=== PATIENT | female | born 1940 | race Caucasian/White ===

== ENCOUNTER 2016-09-26 12:30 | Emergency (ER) | payer MEDICARE ==
[2016-09-26] MEDS ORDERED: NORMAL SALINE 1000 ML 1,000 ML IV ONE (13:24)
[2016-09-26 13:56] LABS: ABSOLUTE LYMPHOCYTES (AUTO) 0.4 10^3/uL (0.5-4.7); ABSOLUTE MONOCYTES (AUTO) 0.5 10^3/uL (0.1-1.4); BASOPHILS % (AUTO) 0.5 % (0-2); EOSINOPHILS % (AUTO) 0.4 % (0-6); HEMOGLOBIN 13.4 g/dL (12.0-15.5); HGB HCT DIFFERENCE 0.2; LYMPHOCYTES % (AUTO) 7.2 % (13-45); MEAN CORPUSCULAR HEMOGLOBIN 29.7 pg (27.0-33.4); MEAN CORPUSCULAR HGB CONC 33.6 g/dL (32.0-36.0); MEAN CORPUSCULAR VOLUME 89 fl (80-97); MONOCYTES % (AUTO) 7.6 % (3-13); RED BLOOD COUNT 4.53 10^6/uL (3.72-5.28); RED CELL DISTRIBUTION WIDTH 13.6 % (11.5-14.0); SEGMENTED NEUTROPHILS % (AUTO) 84.3 % (42-78)
[2016-09-26 14:06] LABS: PROTHROMBIN TIME 13.2 SEC (11.4-15.4)
[2016-09-26 14:13] LABS: ALANINE AMINOTRANSFERASE 20 U/L (9-52); ALBUMIN 3.8 g/dL (3.5-5.0); ALKALINE PHOSPHATASE 89 U/L (38-126); ANION GAP 13 (5-19); ASPARTATE AMINO TRANSFERASE 18 U/L (14-36); BILIRUBIN,TOTAL 0.6 mg/dL (0.2-1.3); BLOOD UREA NITROGEN 18 mg/dL (7-20); CALCIUM 10.1 mg/dL (8.4-10.2); CARBON DIOXIDE 26 mmol/L (22-30); CHLORIDE 99 mmol/L (98-107); CREATINE KINASE 32 U/L (30-135); CREATININE RESULT 0.74 mg/dL (0.52-1.25); GLUCOSE 106 mg/dL (75-110); POTASSIUM 4.1 mmol/L (3.6-5.0); SODIUM 138.3 mmol/L (137-145); TOTAL PROTEIN 6.3 g/dL (6.3-8.2)
[2016-09-26 14:31] LABS: CREATINE KINASE MB 0.82 ng/mL (<4.55); TROPONIN I 0.024 ng/mL
[2016-09-26 15:39] LABS: APPEARANCE,URINE SLIGHTLY-CLOUDY; BILIRUBIN,URINE NEGATIVE (NEGATIVE); GLUCOSE, URINE NEGATIVE (NEGATIVE); KETONES,URINE 20 mg/dL (NEGATIVE); LEUKOCYTE ESTERASE,URINE TRACE (NEGATIVE); NITRITE,URINE NEGATIVE (NEGATIVE); PROTEIN,URINE NEGATIVE (NEGATIVE); URINE SPECIFIC GRAVITY 1.012; UROBILINOGEN,URINE NEGATIVE mg/dL (<2.0)
[2016-09-26 16:19] VITALS: BP 172/65
--- NOTE | 2016-09-26 16:25 | ER Document Report ---
ED General - General Chief Complaint: Syncope Stated Complaint: POSSIBLE SYNCOPE TRAVEL OUTSIDE OF THE [place] IN LAST 30 DAYS: No - HPI Patient complains to provider of: syncope Notes: Patient's coming in for evaluation after having a syncopal episode at [facility]. Patient states she has a history of a multiple syncopal episodes in the past. Patient states while [facility]. She fell low dizzy lightheaded with a sit down and then passed out denies any head trauma denies any hip pain this time. Patient does complain of left hand pain with obvious bruising and swelling noted to the ring and middle finger. Patient is unclear of the injury. Patient states prior to and after other than having hand pain denies head pain neck pain chest pain abdominal pain fevers chills nausea vomiting diarrhea. Patient states episode similar to episodes the past denies any palpitations. Patient states she's not followed up with her primary care any especially for further evaluation of her multiple syncopal episodes. - Related Data Allergies/Adverse Reactions: Sulfa (Sulfonamide Antibiotics) Allergy (Verified 07/22/16 18:03) Past Medical History - Social History Smoking Status: Unknown if Ever Smoked Family History: Reviewed & Not Pertinent - Past Medical History Cardiac Medical History: Reports: Hx Hypercholesterolemia, Hx Hypertension Denies: Hx Heart Attack Pulmonary Medical History: Denies: Hx Asthma Neurological Medical History: Reports: Hx Seizures - 30 YEARS AGO. Denies: Hx Cerebrovascular Accident Endocrine Medical History: Reports: Hx Diabetes Mellitus Type 2, Hx Hypothyroidism GI Medical History: Denies: Hx Hepatitis, Hx Hiatal Hernia, Hx Ulcer Psychiatric Medical History: Reports: Hx Depression Infectious Medical History: Denies: Hx Hepatitis Past Surgical History: Reports: Hx Cholecystectomy, Hx Orthopedic Surgery - ayesha knee/right rotator cuff, Hx Thyroid Surgery, Hx Tonsillectomy. Denies: Hx Mastectomy, Hx Open Heart Surgery, Hx Pacemaker - Immunizations Hx Diphtheria, Pertussis, Tetanus Vaccination: Yes Hx Pneumococcal Vaccination: 09/17/13 Review of Systems - Review of Systems Constitutional: No symptoms reported EENT: No symptoms reported Cardiovascular: Syncope Respiratory: No symptoms reported Gastrointestinal: No symptoms reported Genitourinary: No symptoms reported Female Genitourinary: No symptoms reported Musculoskeletal: No symptoms reported Skin: No symptoms reported Hematologic/Lymphatic: No symptoms reported Neurological/Psychological: No symptoms reported -: Yes All other systems reviewed and negative Physical Exam - Vital signs Vitals: Pulse Ox 97 09/26/16 12:46 Interpretation: Normal - General General appearance: Appears well, Alert - HEENT Head: Normocephalic, Atraumatic Eyes: Normal Pupils: PERRL - Respiratory Respiratory status: No respiratory distress Chest status: Nontender Breath sounds: Normal Chest palpation: Normal - Cardiovascular Rhythm: Regular Heart sounds: Normal auscultation Murmur: No - Abdominal Inspection: Normal Distension: No distension Bowel sounds: Normal Tenderness: Nontender Organomegaly: No organomegaly - Back Back: Normal, Nontender - Extremities General upper extremity: Nontender, Normal color, Normal ROM, Normal temperature. No: Normal inspection - Bruising to the left fourth and third digit range of motion normal Refill normal General lower extremity: Normal inspection, Nontender, Normal color, Normal ROM , Normal temperature, Normal weight bearing. No: Walt's sign - Neurological Neuro grossly intact: Yes Cognition: Normal Orientation: AAOx4 [place] Coma Scale Eye Opening: Spontaneous [place] Coma Scale Verbal: Oriented [place] Coma Scale Motor: Obeys Commands [place] Coma Scale Total: 15 Speech: Normal Motor strength normal: LUE, RUE, LLE, RLE Sensory: Normal - Psychological Associated symptoms: Normal affect, Normal mood - Skin Skin Temperature: Warm Skin Moisture: Dry Skin Color: Normal Course - Re-evaluation Re-evalutation: 09/26/16 19:28 Patient presents with syncopal episode. Lab work shows no critical etiology. Patient was orthostatic upon evaluation. After a liter fluid patient states she 's feeling better patient was able ambulate around the entire ER without difficulty. Patient requesting to be discharged home. Explained to the patient would recommend patient follow-up with primary care and cardiology if not be admitted to the hospital patient is requesting to be flat go. Did discuss with patient's daughter and also may these recommendations no states patient will not follow-up because she does not want to see any further doctors. Otherwise patient has a critical etiology filled patient safe to be discharged home she was cursing plenty fluids. - Vital Signs Vital signs: Temp Pulse Resp BP Pulse Ox 82 14 172/65 H 100 09/26/16 13:52 09/26/16 16:01 09/26/16 16:01 09/26/16 16:01 - Laboratory Result Diagrams: 09/26/16 13:30 09/26/16 13:30 Laboratory results interpreted by me: 09/26/16 09/26/16 13:30 15:24 Seg Neutrophils % 84.3 H Lymphocytes % 7.2 L Absolute Lymphocytes 0.4 L Urine Ketones 20 H Ur Leukocyte Esterase TRACE H Discharge - Discharge Clinical Impression: Syncope Qualifiers: Syncope type: unspecified Qualified Code(s): R55 - Syncope and collapse Condition: Good Disposition: HOME, SELF-CARE Instructions: Syncopal Episode ([facility]) Additional Instructions: Follow-up with your primary care physician. Take medication as prescribed. Referrals: DEEPA JUDGE MD [ACTIVE STAFF] - Follow up as needed
--- NOTE | 2016-09-26 20:38 | EKG REPORT ---
SEVERITY:- ABNORMAL ECG - SINUS RHYTHM FIRST DEGREE AV BLOCK RBBB AND LAFB LEFT VENTRICULAR HYPERTROPHY : Confirmed by: Gurwinder Lundberg MD 26-Sep-2016 20:37:11
== END 2016-09-26 16:25 | disposition home or self-care (01) ==
LOC: ER 12:30
DX: R55 Syncope and collapse (principal); R42 Dizziness and giddiness; M79.642 Pain in left hand; M79.89 Other specified soft tissue disorders
CPT/HCPCS: 36415; 71010; 80053; 81001; 82550; 82553; 84484; 85025; 85610; 93005; 93010; 99285

== ENCOUNTER 2016-10-11 10:32 | Inpatient (IN) | payer MEDICARE, BC ==
--- NOTE | 2016-10-11 11:06 | ER Document Report ---
ED Neuro Symptoms/Deficit - General Mode of Arrival: Medic Information source: Patient Notes: 75 year old female with history of syncopal episodes (last one 2 weeks ago), hypertension, and hyperlipidemia presents to the ED via EMS complaining of slurred speech, right facial weakness, and right lower extremity weakness what was present when the patient woke up. Patient called her primary care physician , Dr. Gordon, in order to cancel an appointment that she had today and was told to hang up the phone and dial 911 because she had slurred speech. Patient reports that she proceeded to fall after hanging the phone up. Patient claims that she feels better and that her speech is almost back to normal. She explains that she "can't make my words exactly." Patient additionally reports that she had "trouble" with her vision last night before bed. Patient does not remember if she had any weakness last night. Patient was seen in the ED 2 years ago secondary to altered mental status and was transferred to [place] for bilateral carotid stenosis. TRAVEL OUTSIDE OF THE [place] IN LAST 30 DAYS: No - HPI Patient complains to provider of: Falling, Speech Impairment, Vision Changes, Weakness - right leg and face Onset: Other - see above Altered sensation: RLE, R facial Associated symptoms: Other - see above <MAZIN SO - Last Filed: 10/11/16 11:06> - General Notes: This 75-year-old female patient comes emergency room for slurred speech and right sided weakness. She reports prior to going to bed last night she was seeing double. When she woke up this morning the vision was back to normal other than being a little blurred. She noticed when she woke up this morning the right lower extremity seemed to be a little weak and dragged the leg. She called her primary care provider to cancel a scheduled appointment for today, and the switchboard wirer noticed that her speech was slurred and recommended that she hang up and down 911. Past history significant for type II diabetes, GERD, hypertension, hyperlipidemia, seizure disorder, depression and bipolar illness, hypothyroid. She does have bilateral carotid stenosis, has had a thyroidectomy. She spent 12 days in the hospital in September 2014 for mental status changes, was found to have bilateral carotid artery stenosis, was transferred to [facility]. She does not think there were any interventions done when she went there. She has been here for psychiatric problems related to depression and suicidal ideation at least twice since then. When she is worsening, there is some right facial weakness, right content publisher strength is normal, right leg lift is almost absent. About 2 hours later, she is able to lift the right leg up as similar to the left leg. Her right facial weakness seemed to have improved also. <HENRIKYVETTE - Last Filed: 10/11/16 12:48> - General Chief Complaint: Slurred Speech Stated Complaint: SLURRED SPEECH - Related Data Allergies/Adverse Reactions: Sulfa (Sulfonamide Antibiotics) Allergy (Verified 10/11/16 11:14) Past Medical History - General Information source: Patient - Social History Smoking Status: Unknown if Ever Smoked Family History: Reviewed & Not Pertinent - Past Medical History Cardiac Medical History: Reports: Hx Hypercholesterolemia, Hx Hypertension Neurological Medical History: Reports: Hx Seizures - 30 YEARS AGO, Other - syncopal episodes Endocrine Medical History: Reports: Hx Diabetes Mellitus Type 2, Hx Hypothyroidism Psychiatric Medical History: Reports: Hx Depression Past Surgical History: Reports: Hx Cholecystectomy, Hx Orthopedic Surgery - ayesha knee/right rotator cuff, Hx Thyroid Surgery, Hx Tonsillectomy - Immunizations Hx Diphtheria, Pertussis, Tetanus Vaccination: Yes Hx Pneumococcal Vaccination: 09/17/13 <MAZIN SO - Last Filed: 10/11/16 11:06> Review of Systems - Review of Systems Constitutional: No symptoms reported EENT: See HPI, Other - vision "troubles" Cardiovascular: No symptoms reported Respiratory: No symptoms reported Gastrointestinal: No symptoms reported Genitourinary: No symptoms reported Female Genitourinary: No symptoms reported Musculoskeletal: No symptoms reported Skin: No symptoms reported Hematologic/Lymphatic: No symptoms reported Neurological/Psychological: See HPI, Weakness - right face and right lower extremity, Speech impairment - slurred speech -: Yes All other systems reviewed and negative <MAZIN SO - Last Filed: 10/11/16 11:06> Physical Exam - General General appearance: Alert In distress: None - HEENT Head: Normocephalic, Atraumatic Eyes: Normal Extraocular movements intact: Yes Pupils: PERRL - Respiratory Respiratory status: No respiratory distress Breath sounds: Normal - Cardiovascular Rhythm: Irregularly irregular - with occassional dropped beats Murmur: Yes - systolic murmur - Abdominal Inspection: Normal - Back Back: Normal - Extremities General upper extremity: Normal inspection, Normal ROM General lower extremity: No: Normal inspection - see neuro exam below - Neurological Neuro grossly intact: Yes Cognition: Normal Orientation: AAOx4 [place] Coma Scale Eye Opening: Spontaneous [place] Coma Scale Verbal: Oriented [place] Coma Scale Motor: Obeys Commands [place] Coma Scale Total: 15 Speech: Normal - but slow Additional motor exam normals: Equal content publisher, Other - Right facial weakness. Right lower extremity weakness. Unable to lift RLE off bed. - Psychological Associated symptoms: Normal affect, Normal mood - Skin Skin Temperature: Warm Skin Moisture: Dry Skin Color: Normal <MAZIN SO - Last Filed: 10/11/16 11:06> - Vital signs Vitals: Temp Pulse Resp BP Pulse Ox 98.3 F 77 16 181/86 H 97 10/11/16 10:33 10/11/16 10:33 10/11/16 10:33 10/11/16 10:33 10/11/16 10:33 <YVETTE CHESTER - Last Filed: 10/11/16 12:48> Course - Re-evaluation Re-evalutation: 10/11/16 12:47 The patient's deficit seem to have cleared in less than 2 hours from arrival time. The patient did wake up with her symptoms. For these reasons the patient is not a TPA candidate. - Vital Signs Vital signs: Temp Pulse Resp BP Pulse Ox 98.3 F 77 17 181/86 H 98 10/11/16 10:33 10/11/16 10:33 10/11/16 10:33 10/11/16 10:33 10/11/16 10:40 - Laboratory Result Diagrams: 10/11/16 11:00 10/11/16 11:00 Laboratory results interpreted by me: 10/11/16 11:00 Lymphocytes % 12.7 L - Diagnostic Test Radiology reviewed: Reports reviewed - CT does show some chronic changes with nothing acute. Chest x-ray does not show any acute process. - EKG Interpretation by Me EKG shows normal: Sinus rhythm, Kinsman, ST-T Waves. abnormal: Intervals - Borderline prolonged QT interval, QRS Complexes - Old inferior TX, old anterior TX Rate: Normal - 70 Rhythm: NSR When compared to previous EKG there are: No significant change - Consults Dr. Calabrese Time consulted: 12:40 Consulted provider: will come to ER <YVETTE CHESTER - Last Filed: 10/11/16 12:48> ED [employer]/Exc Criteria - Inclusion Criteria: 1: Patient presented to ED within 3 hours of acute ischemic stroke symptom onset ? -: No - patient woke up with symptoms this morning. 2: Did baseline CT exclude intracranial hemorrhage and/or other risk factors? -: Yes 3: Is the age of the patient 18 years of age or greater? -: Yes : If any of the above questions are answered "NO" then stop, patient is not a candidate for Alteplase, : If all of the above questions are answered "YES" then continue with Exclusion Criteria. <HENRIKYVETTE - Last Filed: 10/11/16 12:48> ED NIH Stroke Scale Discharge <MAZIN SO - Last Filed: 10/11/16 11:06> - Discharge Admitting Provider: Hospitalist Unit Admitted: IMCU <HENRIKYVETTE - Last Filed: 10/11/16 12:48> - Discharge Clinical Impression: TIA (transient ischemic attack) Qualifiers: Transient cerebral ischemia type: unspecified Qualified Code(s): G45.9 - Transient cerebral ischemic attack, unspecified Hypertension Qualifiers: Hypertension type: essential hypertension Qualified Code(s): I10 - Essential ( primary) hypertension Condition: Stable Disposition: ADMITTED OBSERVATION Referrals: JAMES GORDON MD [Primary Care Provider] - Follow up as needed Scribe Documentation - Scribe Written by Scribe:: Luba Mcnamara, 10/11/2016 1119 acting as scribe for :: Henrik <MAZIN SO - Last Filed: 10/11/16 11:06>
[2016-10-11 11:19] LABS: ABSOLUTE EOSINOPHILS # (AUTO) 0.1 10^3/uL (0.0-0.6); ABSOLUTE LYMPHOCYTES (AUTO) 0.6 10^3/uL (0.5-4.7); ABSOLUTE MONOCYTES (AUTO) 0.4 10^3/uL (0.1-1.4); ABSOLUTE NEUT (AUTO) 3.5 10^3/uL (1.7-8.2); BASOPHILS % (AUTO) 0.6 % (0-2); EOSINOPHILS % (AUTO) 1.3 % (0-6); HEMATOCRIT 39.1 % (36.0-47.0); HEMOGLOBIN 13.3 g/dL (12.0-15.5); HGB HCT DIFFERENCE 0.8; LYMPHOCYTES % (AUTO) 12.7 % (13-45); MEAN CORPUSCULAR HEMOGLOBIN 30.2 pg (27.0-33.4); MEAN CORPUSCULAR HGB CONC 34.1 g/dL (32.0-36.0); MEAN CORPUSCULAR VOLUME 88 fl (80-97); MONOCYTES % (AUTO) 8.3 % (3-13); PARTIAL THROMBOPLASTIN TIME 29.4 SEC (23.5-35.8); RED BLOOD COUNT 4.42 10^6/uL (3.72-5.28); RED CELL DISTRIBUTION WIDTH 13.9 % (11.5-14.0); SEGMENTED NEUTROPHILS % (AUTO) 77.1 % (42-78); WHITE BLOOD COUNT 4.5 10^3/uL (4.0-10.5)
[2016-10-11 11:21] LABS: PROTHROMBIN TIME 13.3 SEC (11.4-15.4)
--- NOTE | 2016-10-11 11:25 | EKG REPORT ---
SEVERITY:- ABNORMAL ECG - SINUS RHYTHM RBBB AND LAFB LEFT VENTRICULAR HYPERTROPHY : Confirmed by: Jeremy Maynard 11-Oct-2016 11:24:37
[2016-10-11 11:37] LABS: ALANINE AMINOTRANSFERASE 28 U/L (9-52); ALBUMIN 3.9 g/dL (3.5-5.0); ALKALINE PHOSPHATASE 88 U/L (38-126); ANION GAP 7 (5-19); ASPARTATE AMINO TRANSFERASE 18 U/L (14-36); BILIRUBIN,TOTAL 0.5 mg/dL (0.2-1.3); BLOOD UREA NITROGEN 14 mg/dL (7-20); CALCIUM 10.1 mg/dL (8.4-10.2); CARBON DIOXIDE 30 mmol/L (22-30); CHLORIDE 102 mmol/L (98-107); CREATINE KINASE 30 U/L (30-135); CREATININE RESULT 0.59 mg/dL (0.52-1.25); GLUCOSE 106 mg/dL (75-110); SODIUM 139.4 mmol/L (137-145); TOTAL PROTEIN 6.4 g/dL (6.3-8.2)
[2016-10-11 11:48] LABS: CREATINE KINASE MB 0.56 ng/mL (<4.55); TROPONIN I 0.012 ng/mL
[2016-10-11 13:20] LABS: APPEARANCE,URINE SLIGHTLY-CLOUDY; BILIRUBIN,URINE NEGATIVE (NEGATIVE); GLUCOSE, URINE NEGATIVE (NEGATIVE); KETONES,URINE NEGATIVE (NEGATIVE); LEUKOCYTE ESTERASE,URINE NEGATIVE (NEGATIVE); NITRITE,URINE NEGATIVE (NEGATIVE); PROTEIN,URINE NEGATIVE (NEGATIVE); URINE SPECIFIC GRAVITY 1.009; UROBILINOGEN,URINE NEGATIVE mg/dL (<2.0)
[2016-10-11] MEDS ORDERED: ACETAMINOPHEN 325 MG TABLET PO PRN (13:36)
[2016-10-11] MEDS ORDERED: ONDANSETRON 4 MG TAB.RAPDIS PO PRN (13:36)
[2016-10-11] MEDS ORDERED: ONDANSETRON HCL INJ/PF 4 MG/2 ML SDV IV PRN (13:36)
[2016-10-11] MEDS ORDERED: GLUCAGON,HUMAN RECOMB 1 MG INJ IM PRN (13:50)
[2016-10-11] MEDS ORDERED: INSULIN LISPRO 100 UNIT/ML 3 ML VIAL SUBCUT PRN (13:50)
[2016-10-11] MEDS ORDERED: DEXTROSE 40% GEL 15 GM TUBE PO PRN ×2 (13:50)
[2016-10-11] MEDS ORDERED: DEXTROSE 50%-WATER 25 GM/50 ML DISP.SYRIN IV PRN ×2 (13:50)
--- NOTE | 2016-10-11 14:04 | PDOC H&P ---
History of Present Illness Admission Date/PCP: 10/11/16 13:27 JAMES GORDON MD Patient complains of: Right weakness along with dysarthria History of Present Illness: MARCELO NIXON is a 75 year old female who went to bed last night in her usual state of health but woke up this morning with right arm and leg weakness. She wouldn't call her doctor to schedule appointment for evaluation of her right arm and leg weakness and they noted that she was having difficulty speaking told her to call 911. Patient was emergency room and continues to have some mild dysarthria and has right arm and leg weakness but reports it is improved from when she woke up. The patient is out of the window for thrombolytics. She had a head CT which shows no acute event. Patient has been taking aspirin 81 mg daily because of her history and has been compliant with this. She denies any visual loss. She denies odynophagia or dysphagia. She denies any sensory changes. Past Medical History Cardiac Medical History: Reports: Hyperlipidema, Hypertension Denies: Myocardial Infarction Pulmonary Medical History: Denies: Asthma EENT Medical History: Reports: None Neurological Medical History: Reports: Seizures - 30 YEARS AGO, Other - syncopal episodes Endocrine Medical History: Reports: Diabetes Mellitus Type 2, Hypothyroidism Renal/ Medical History: Reports: None Malignancy Medical History: Reports: None GI Medical History: Reports: Gastroesophageal Reflux Disease Denies: Hepatitis, Hiatal Hernia Skin Medical History: Reports: None Psychiatric Medical History: Reports: Depression Traumatic Medical History: Reports: None Hematology: Denies: Anemia, Sickle Cell Disease Infectious Medical History: Reports: None Past Surgical History Past Surgical History: Reports: Cholecystectomy, Hysterectomy, Orthopedic Surgery - ayesha knee/right rotator cuff, Tonsillectomy Denies: Amputation, Mastectomy, Pacemaker Social History Information Source: Patient Lives with: Alone Smoking Status: Never Smoker Frequency of Alcohol Use: None Hx Recreational Drug Use: No Drugs: None Hx Prescription Drug Abuse: No - Advance Directive Resuscitation Status: Do Not Resuscitate Surrogate healthcare decision maker:: Daughter Family History Family History: Mother at age 84 from complications of anemia. Father at age 67 from coronary artery disease. Parental Family History Reviewed: Yes Children Family History Reviewed: No Sibling(s) Family History Reviewed.: No Medication/Allergy Allergies/Adverse Reactions: Sulfa (Sulfonamide Antibiotics) Allergy (Verified 10/11/16 11:14) Review of Systems Constitutional: ABSENT: chills, fever(s), headache(s), weight gain, weight loss Ears: ABSENT: hearing changes Cardiovascular: ABSENT: chest pain, dyspnea on exertion, edema, orthropnea, palpitations Respiratory: ABSENT: cough, hemoptysis Gastrointestinal: ABSENT: abdominal pain, constipation, diarrhea, hematemesis, hematochezia, nausea, vomiting Genitourinary: ABSENT: dysuria, hematuria Musculoskeletal: ABSENT: joint swelling Integumentary: ABSENT: rash, wounds Neurological: PRESENT: as per HPI Psychiatric: ABSENT: anxiety, depression Hematologic/Lymphatic: ABSENT: easy bleeding, easy bruising Physical Exam Vital Signs: Temp Pulse Resp BP Pulse Ox 98.3 F 100 15 168/74 H 98 10/11/16 10:33 10/11/16 11:57 10/11/16 13:01 10/11/16 13:01 10/11/16 13:01 General appearance: PRESENT: no acute distress, well-developed, well-nourished Head exam: PRESENT: atraumatic, normocephalic Eye exam: PRESENT: conjunctiva pink, EOMI, PERRLA. ABSENT: scleral icterus Ear exam: PRESENT: normal external ear exam Mouth exam: PRESENT: moist, tongue midline Neck exam: ABSENT: carotid bruit, JVD, lymphadenopathy, thyromegaly Respiratory exam: PRESENT: clear to auscultation ayesha. ABSENT: rales, rhonchi, wheezes Cardiovascular exam: PRESENT: RRR, systolic murmur - 3/6 systolic murmur. ABSENT: diastolic murmur, rubs Pulses: PRESENT: normal dorsalis pedis pul GI/Abdominal exam: PRESENT: normal bowel sounds, soft. ABSENT: distended, guarding, mass, organolmegaly, rebound, tenderness Rectal exam: PRESENT: deferred Extremities exam: ABSENT: calf tenderness, clubbing, pedal edema Neurological exam: PRESENT: alert, awake, oriented to person, oriented to place , oriented to time, oriented to situation, CN II-XII grossly intact, motor sensory deficit - Strength is 4 out of 5 on the right upper and lower extremity. She does have some right-sided facial droop also. Psychiatric exam: PRESENT: appropriate affect Skin exam: PRESENT: dry, intact, warm. ABSENT: cyanosis, rash Results Impressions: Chest X-Ray 10/11/16 10:33 IMPRESSION: NO ACUTE RADIOGRAPHIC FINDING IN THE CHEST. Head CT 10/11/16 10:33 IMPRESSION: MILD CHRONIC CHANGES OF ATROPHY AND MICROVASCULAR ISCHEMIA. NO ACUTE PROCESS. Assessment & Plan - Diagnosis (1) CVA (cerebral vascular accident) Is this a current diagnosis for this admission?: YesPlan: The patient awoke with symptoms of right-sided weakness consistent with an acute CVA. She has improved and received TPA she was outside of the window. Will increase her aspirin dose to 325 mg a day. We'll check carotid Dopplers, MRI, echocardiogram. We'll also consult PT OT and speech therapy. (2) High blood pressure Qualifiers: Hypertension type: essential hypertension Qualified Code(s): I10 - Essential (primary) hypertension Is this a current diagnosis for this admission?: YesPlan: Patient has not currently been on medications and we will watch closely. (3) Hypercholesterolemia Is this a current diagnosis for this admission?: YesPlan: Patient has been on Lipitor. Will check a lipid panel. (4) Hypothyroidism Is this a current diagnosis for this admission?: YesPlan: Continue Synthroid. (5) Seizure disorder Is this a current diagnosis for this admission?: YesPlan: Continue with Tegretol. (6) DVT prophylaxis Is this a current diagnosis for this admission?: YesPlan: We'll give Lovenox. - Time Time Spent: 50 to 70 Minutes - Plan Summary Plan Summary: We'll make an observation admission.
[2016-10-11] MEDS ORDERED: ASPIRIN 325 MG TABLET PO ONE (15:45)
[2016-10-11] MEDS ORDERED: ENOXAPARIN SODIUM INJ 40 MG/0.4 ML DISP.SYRIN SUBCUT ONE (15:45)
[2016-10-11 15:56] LABS: CHOLESTEROL 206.23 mg/dL (0-200); Direct HDL 55 mg/dL (>40); TRIGLYCERIDES 175 mg/dL (<150)
[2016-10-11 16:07] LABS: DIRECT LDL 96 mg/dL (<100)
--- NOTE | 2016-10-11 18:12 | XCELERA REPORT ---
[address] [address] Transthoracic Echocardiogram Report Name: MARCELO NIXON Age: 75 yrs Gender: Female : 1940 Patient Status: Inpatient Patient Location: \S\[facility]\S\A Study Date: 10/11/2016 02:57 PM Height: 66 in Weight: 145 lb BSA: 1.7 m2 Procedure: A complete two-dimensional transthoracic echocardiogram was performed (2D, M-mode, spectral and color flow Doppler). The study was technically difficult with many images being suboptimal in quality. Reason For Study: cva Ordering Physician: ADAM MEJIA Performed By: Paula Prescott Interpretation Summary The left ventricular ejection fraction is normal. Doppler measurements suggest impaired left ventricular relaxation, which is associated with grade I/IV or mild diastolic dysfunction There is mild concentric left ventricular hypertrophy. The left ventricle is grossly normal size. Wall motion cannot be accurately commented on, but no definite regional wall motion abnormalities noted. The right ventricular systolic function is normal. The left atrial size is normal. The right atrium is normal. There is no mitral valve stenosis. There is a trace to mild amount of mitral regurgitation There is mild aortic stenosis There is a peak gradient of 25 mm of Hg. No aortic regurgitation is present. There is a trace or physiologic amount of tricuspid regurgitation Right ventricular systolic pressure is at the upper limits of normal Minimal pericardial effusion. No definite cardiac source of CVA/TIA noted on this particular trans- thoracic study. Consider WILLIAM if clinically indicated. May consider mobile cardiac telemetry monitoring (MCT) for ruling out transient AFIB. MMode/2D Measurements \T\ Calculations RVDd: 2.1 cm LVIDd: 4.3 cm FS: 42.9 % Ao root diam: 3.4 cm IVSd: 1.3 cm LVIDs: 2.4 cm EDV(Teich): 81.5 ml LVPWd: 1.3 cm ESV(Teich): 21.0 ml Ao root area: 9.2 cm2 EF(Teich): 74.3 % LA dimension: 3.5 cm LVOT diam: 1.8 cm LVOT area: 2.4 cm2 Doppler Measurements \T\ Calculations MV E max fish: MV P1/2t max fish: Ao V2 max: LV V1 max P.6 cm/sec 67.6 cm/sec 260.9 cm/sec 4.8 mmHg MV A max fish: MV P1/2t: 50.7 msec Ao max PG: LV V1 mean P.8 cm/sec MVA(P1/2t): 4.3 cm2 27.7 mmHg 2.8 mmHg MV E/A: 0.69 MV dec slope: Ao V2 mean: LV V1 max: 390.8 cm/sec2 196.3 cm/sec 110.0 cm/sec Ao mean PG: LV V1 mean: 18.0 mmHg 77.2 cm/sec Ao V2 VTI: 46.3 cmLV V1 VTI: MILIND(I,D): 1.2 cm2 22.3 cm MILIND(V,D): 1.0 cm2 SV(LVOT): 54.6 ml PA V2 max: TR max fish: 134.3 cm/sec 250.8 cm/sec PA max P.2 mmHg TR max P.2 mmHg Left Ventricle The left ventricle is grossly normal size. There is mild concentric left ventricular hypertrophy. The left ventricular ejection fraction is normal. Doppler measurements suggest impaired left ventricular relaxation, which is associated with grade I/IV or mild diastolic dysfunction. Wall motion cannot be accurately commented on, but no definite regional wall motion abnormalities noted. Right Ventricle The right ventricle is grossly normal size. There is normal right ventricular wall thickness. The right ventricular systolic function is normal. Atria The right atrium is normal. The left atrial size is normal. Interarterial septum not well visualized and not well dopplered. Cannot comment on ASD/PFO presence. Mitral Valve There is mild mitral annular calcification. There is no mitral valve stenosis. There is a trace to mild amount of mitral regurgitation. Aortic Valve The aortic valve is not well visualized secondary to technical limitations. There is mild aortic stenosis. There is a peak gradient of 25 mm of Hg. No aortic regurgitation is present. Tricuspid Valve The tricuspid valve is not well visualized secondary to technical limitations. There is no tricuspid stenosis. There is a trace or physiologic amount of tricuspid regurgitation. Right ventricular systolic pressure is at the upper limits of normal. Pulmonic Valve The pulmonic valve is not well visualized. Great Vessels The aortic root is not well visualized. The inferior vena cava appeared normal and decreased > 50% with respiration (RAP 5-10 mmHg). Effusions Minimal pericardial effusion. Incidental Findings No definite cardiac source of CVA/TIA noted on this particular trans- thoracic study. Consider WILLIAM if clinically indicated. May consider mobile cardiac telemetry monitoring (MCT) for ruling out transient AFIB. : ADAM MEJIA > Jeremy Maynard
[2016-10-11] MEDS: BUSPIRONE HCL 10 MG TABLET PO SCH (21:30)
[2016-10-11] MEDS: CARBAMAZEPINE 200 MG TAB.SR.12H PO SCH (21:30)
[2016-10-11] MEDS: RISPERIDONE 1 MG TABLET PO SCH (21:31)
[2016-10-11] MEDS: ATORVASTATIN CALCIUM 10 MG TABLET PO SCH (21:32)
[2016-10-12 04:46] LABS: HEMATOCRIT 37.1 % (36.0-47.0); HEMOGLOBIN 12.8 g/dL (12.0-15.5); HGB HCT DIFFERENCE 1.3; MEAN CORPUSCULAR HEMOGLOBIN 30.4 pg (27.0-33.4); MEAN CORPUSCULAR HGB CONC 34.5 g/dL (32.0-36.0); MEAN CORPUSCULAR VOLUME 88 fl (80-97); RED BLOOD COUNT 4.22 10^6/uL (3.72-5.28); RED CELL DISTRIBUTION WIDTH 14.1 % (11.5-14.0); WHITE BLOOD COUNT 5.1 10^3/uL (4.0-10.5)
[2016-10-12 05:24] LABS: ANION GAP 7 (5-19); BLOOD UREA NITROGEN 16 mg/dL (7-20); CALCIUM 9.7 mg/dL (8.4-10.2); CARBON DIOXIDE 26 mmol/L (22-30); CHLORIDE 105 mmol/L (98-107); CREATININE RESULT 0.62 mg/dL (0.52-1.25); GLUCOSE 99 mg/dL (75-110); MAGNESIUM 1.9 mg/dL (1.6-2.3); POTASSIUM 3.9 mmol/L (3.6-5.0); SODIUM 138.4 mmol/L (137-145)
[2016-10-12] MEDS: ENOXAPARIN SODIUM INJ 40 MG/0.4 ML DISP.SYRIN SUBCUT SCH (07:51)
[2016-10-12] MEDS: FLUOXETINE HCL 20 MG CAPSULE PO SCH (09:33)
[2016-10-12] MEDS: BUSPIRONE HCL 10 MG TABLET PO SCH ×2 (09:33→22:11)
[2016-10-12] MEDS: LEVOTHYROXINE SODIUM 0.075 MG TABLET PO SCH (09:34)
[2016-10-12] MEDS: CARBAMAZEPINE 200 MG TAB.SR.12H PO SCH ×2 (09:34→22:10)
[2016-10-12] MEDS: ASPIRIN 325 MG TABLET, ENT COATED PO SCH (09:34)
--- NOTE | 2016-10-12 11:55 | PDOC PROGRESS REPORT ---
Subjective Progress Note for:: 10/12/16 Subjective:: Patient continues to right-sided weakness. She did have an episode this morning when she got up with physical therapy that she became unresponsive for about 1 minute. She had no seizure activity and had return back to her baseline. Physical Exam Vital Signs: Temp Pulse Resp BP Pulse Ox 97.9 F 77 17 188/71 H 98 10/12/16 07:34 10/12/16 08:00 10/12/16 08:00 10/12/16 08:00 10/12/16 08:00 Intake & Output 10/11/16 10/12/16 10/13/16 06:59 06:59 06:59 Intake Total 225 Balance 225 Weight 63.2 kg General appearance: PRESENT: no acute distress Eye exam: PRESENT: conjunctiva pink, scleral icterus Mouth exam: PRESENT: moist, tongue midline Respiratory exam: PRESENT: clear to auscultation ayesha. ABSENT: rales, rhonchi, wheezes Cardiovascular exam: PRESENT: RRR. ABSENT: diastolic murmur, rubs, systolic murmur GI/Abdominal exam: PRESENT: normal bowel sounds, soft. ABSENT: distended, guarding, mass, organolmegaly, rebound, tenderness Neurological exam: PRESENT: alert, awake, oriented to person, oriented to place , oriented to time, oriented to situation, CN II-XII grossly intact, motor sensory deficit Psychiatric exam: PRESENT: appropriate affect Skin exam: PRESENT: dry, intact, warm. ABSENT: cyanosis, rash Results Laboratory Results: 10/12/16 04:17 10/12/16 04:17 10/12/16 10/12/16 04:17 04:17 WBC 5.1 RBC 4.22 Hgb 12.8 Hct 37.1 MCV 88 MCH 30.4 MCHC 34.5 RDW 14.1 H Plt Count 199 Sodium 138.4 Potassium 3.9 Chloride 105 Carbon Dioxide 26 Anion Gap 7 BUN 16 Creatinine 0.62 Est GFR ( Amer) > 60 Est GFR (Non-Af Amer) > 60 Glucose 99 Calcium 9.7 Magnesium 1.9 Impressions: Chest X-Ray 10/11/16 10:33 IMPRESSION: NO ACUTE RADIOGRAPHIC FINDING IN THE CHEST. Head CT 10/11/16 10:33 IMPRESSION: MILD CHRONIC CHANGES OF ATROPHY AND MICROVASCULAR ISCHEMIA. NO ACUTE PROCESS. Carotid Doppler Study 10/11/16 13:49 IMPRESSION: Findings consistent with a greater than 70% stenosis in the left internal carotid artery. No hemodynamically significant stenoses are identified on the right. There has been interval progression in the degree of stenosis on the left as compared to the previous study. Head MRI 10/11/16 13:49 IMPRESSION: Diffusion-weighted images are positive for tiny cortical infarcts in the left frontal convexity and a small left deep periventricular white matter acute infarct. Assessment & Plan - Diagnosis (1) CVA (cerebral vascular accident) Is this a current diagnosis for this admission?: YesPlan: The patient awoke with symptoms of right-sided weakness consistent with an acute CVA. The admission history and physical stated that she received TPA which was an error. She was outside the window for receiving TPA. MRI does show an acute CVA. Carotid Dopplers show left-sided stenosis. We'll continue with full strength aspirin. (2) High blood pressure Qualifiers: Hypertension type: essential hypertension Qualified Code(s): I10 - Essential (primary) hypertension Is this a current diagnosis for this admission?: YesPlan: Her blood pressures have been elevated and we will start on Toprol. (3) Hypercholesterolemia Is this a current diagnosis for this admission?: YesPlan: Patient has been on Lipitor. Will check a lipid panel. (4) Hypothyroidism Is this a current diagnosis for this admission?: YesPlan: Continue Synthroid. (5) Seizure disorder Is this a current diagnosis for this admission?: YesPlan: Continue with Tegretol. (6) DVT prophylaxis Is this a current diagnosis for this admission?: YesPlan: We'll give Lovenox. - Time Time Spent with patient: 25-34 minutes - Inpatient Certification Medical Necessity: Need Close Monitoring Due to Risk of Patient Decompensation
[2016-10-12] MEDS ORDERED: METOPROLOL SUCCINATE 25 MG TAB.SR.24H PO ONE (13:00)
[2016-10-12] MEDS: ATORVASTATIN CALCIUM 10 MG TABLET PO SCH (22:10)
[2016-10-12] MEDS: RISPERIDONE 1 MG TABLET PO SCH (22:10)
[2016-10-13 05:11] LABS: ABSOLUTE EOSINOPHILS # (AUTO) 0.1 10^3/uL (0.0-0.6); ABSOLUTE LYMPHOCYTES (AUTO) 0.8 10^3/uL (0.5-4.7); ABSOLUTE MONOCYTES (AUTO) 0.7 10^3/uL (0.1-1.4); ABSOLUTE NEUT (AUTO) 4.7 10^3/uL (1.7-8.2); BASOPHILS % (AUTO) 0.7 % (0-2); EOSINOPHILS % (AUTO) 2.1 % (0-6); HEMATOCRIT 39.4 % (36.0-47.0); HEMOGLOBIN 13.6 g/dL (12.0-15.5); HGB HCT DIFFERENCE 1.4; LYMPHOCYTES % (AUTO) 12.7 % (13-45); MEAN CORPUSCULAR HEMOGLOBIN 30.4 pg (27.0-33.4); MEAN CORPUSCULAR HGB CONC 34.4 g/dL (32.0-36.0); MEAN CORPUSCULAR VOLUME 88 fl (80-97); MONOCYTES % (AUTO) 11.2 % (3-13); RED BLOOD COUNT 4.46 10^6/uL (3.72-5.28); RED CELL DISTRIBUTION WIDTH 13.8 % (11.5-14.0); SEGMENTED NEUTROPHILS % (AUTO) 73.3 % (42-78); WHITE BLOOD COUNT 6.4 10^3/uL (4.0-10.5)
[2016-10-13 05:15] LABS: ANION GAP 12 (5-19); BLOOD UREA NITROGEN 21 mg/dL (7-20); CALCIUM 10.1 mg/dL (8.4-10.2); CARBON DIOXIDE 26 mmol/L (22-30); CHLORIDE 103 mmol/L (98-107); GLUCOSE 105 mg/dL (75-110); POTASSIUM 4.1 mmol/L (3.6-5.0); SODIUM 140.7 mmol/L (137-145)
[2016-10-13] MEDS: ENOXAPARIN SODIUM INJ 40 MG/0.4 ML DISP.SYRIN SUBCUT SCH (07:23)
[2016-10-13] MEDS: BUSPIRONE HCL 10 MG TABLET PO SCH (09:10)
[2016-10-13] MEDS: LEVOTHYROXINE SODIUM 0.075 MG TABLET PO SCH (09:10)
[2016-10-13] MEDS: CARBAMAZEPINE 200 MG TAB.SR.12H PO SCH (09:11)
[2016-10-13] MEDS: ASPIRIN 325 MG TABLET, ENT COATED PO SCH (09:11)
[2016-10-13] MEDS: FLUOXETINE HCL 20 MG CAPSULE PO SCH (09:12)
[2016-10-13] MEDS ORDERED: METOPROLOL SUCCINATE 25 MG TAB.SR.24H PO SCH (10:00)
--- NOTE | 2016-10-13 12:11 | PDOC PROGRESS REPORT ---
Subjective Progress Note for:: 10/13/16 Subjective:: Patient continues to right-sided weakness. She did have an episode this morning when she got up with physical therapy that she became unresponsive for about 1 minute. She had no seizure activity and had return back to her baseline. Physical Exam Vital Signs: Temp Pulse Resp BP Pulse Ox 97.9 F 71 16 159/60 H 100 10/13/16 07:42 10/13/16 08:00 10/13/16 08:00 10/13/16 08:00 10/13/16 08:00 Intake & Output 10/12/16 10/13/16 10/14/16 06:59 06:59 06:59 Intake Total 225 260 Output Total 750 Balance 225 -490 Weight 63.2 kg 67.5 kg General appearance: PRESENT: no acute distress Eye exam: PRESENT: conjunctiva pink. ABSENT: scleral icterus Mouth exam: PRESENT: moist, tongue midline Neck exam: ABSENT: carotid bruit, JVD, lymphadenopathy, thyromegaly Respiratory exam: PRESENT: clear to auscultation ayesha. ABSENT: rales, rhonchi, wheezes Cardiovascular exam: PRESENT: RRR. ABSENT: diastolic murmur, rubs, systolic murmur GI/Abdominal exam: PRESENT: normal bowel sounds, soft. ABSENT: distended, guarding, mass, organolmegaly, rebound, tenderness Extremities exam: ABSENT: calf tenderness, clubbing, pedal edema Neurological exam: PRESENT: alert, awake, oriented to person, oriented to place , oriented to time, oriented to situation, CN II-XII grossly intact, motor sensory deficit - Patient right upper extremity shows 2 out of 5 strength. Psychiatric exam: PRESENT: appropriate affect Skin exam: PRESENT: dry, intact, warm. ABSENT: cyanosis, rash Results Laboratory Results: 10/13/16 04:27 10/13/16 04:27 10/13/16 10/13/16 04:27 04:27 WBC 6.4 RBC 4.46 Hgb 13.6 Hct 39.4 MCV 88 MCH 30.4 MCHC 34.4 RDW 13.8 Plt Count 189 Seg Neutrophils % 73.3 Lymphocytes % 12.7 L Monocytes % 11.2 Eosinophils % 2.1 Basophils % 0.7 Absolute Neutrophils 4.7 Absolute Lymphocytes 0.8 Absolute Monocytes 0.7 Absolute Eosinophils 0.1 Absolute Basophils 0.0 Sodium 140.7 Potassium 4.1 Chloride 103 Carbon Dioxide 26 Anion Gap 12 BUN 21 H Creatinine 0.60 Est GFR ( Amer) > 60 Est GFR (Non-Af Amer) > 60 Glucose 105 Calcium 10.1 Impressions: Chest X-Ray 10/11/16 10:33 IMPRESSION: NO ACUTE RADIOGRAPHIC FINDING IN THE CHEST. Head CT 10/11/16 10:33 IMPRESSION: MILD CHRONIC CHANGES OF ATROPHY AND MICROVASCULAR ISCHEMIA. NO ACUTE PROCESS. Carotid Doppler Study 10/11/16 13:49 IMPRESSION: Findings consistent with a greater than 70% stenosis in the left internal carotid artery. No hemodynamically significant stenoses are identified on the right. There has been interval progression in the degree of stenosis on the left as compared to the previous study. Head MRI 10/11/16 13:49 IMPRESSION: Diffusion-weighted images are positive for tiny cortical infarcts in the left frontal convexity and a small left deep periventricular white matter acute infarct. Assessment & Plan - Diagnosis (1) CVA (cerebral vascular accident) Is this a current diagnosis for this admission?: YesPlan: The patient awoke with symptoms of right-sided weakness consistent with an acute CVA. The admission history and physical stated that she received TPA which was an error. She was outside the window for receiving TPA. MRI does show an acute CVA. Carotid Dopplers show left-sided stenosis. We'll continue with full strength aspirin. I have discussed with the patient and she would like me to discuss the case with vascular surgery at [facility] to see whether or not they would be agreeable to accept her in transfer to we'll call down there to see if vascular surgery would be agreeable to to carotid endarterectomy on the left. (2) High blood pressure Qualifiers: Hypertension type: essential hypertension Qualified Code(s): I10 - Essential (primary) hypertension Is this a current diagnosis for this admission?: YesPlan: Her blood pressures have been elevated and will continue Toprol. (3) Hypercholesterolemia Is this a current diagnosis for this admission?: YesPlan: Patient has been on Lipitor. (4) Hypothyroidism Is this a current diagnosis for this admission?: YesPlan: Continue Synthroid. (5) Seizure disorder Is this a current diagnosis for this admission?: YesPlan: Continue with Tegretol. (6) DVT prophylaxis Is this a current diagnosis for this admission?: YesPlan: We'll give Lovenox. - Time Time Spent with patient: 25-34 minutes - Inpatient Certification Medical Necessity: Need Close Monitoring Due to Risk of Patient Decompensation - Plan Summary Plan Summary: We'll discuss with vascular surgery at [facility] to see whether or not patient will be transferred for carotid endarterectomy or will be set up for later date.
--- NOTE | 2016-10-13 15:14 | PDOC TRANSFER SUMMARY ---
General Admission Date/PCP: 10/11/16 17:59 JAMES GORDON MD Admission Date: 10/11/16 Transfer Date: 10/13/16 Accepting Facility: [facility] Accepting Physician: Dr. Shane Livingston Resuscitation Status: Do Not Resuscitate - Transfer Diagnosis (1) CVA (cerebral vascular accident) Is this a current diagnosis for this admission?: YesDiagnosis Summary: Carotid Dopplers show greater than 70% stenosis on the left. (2) High blood pressure Is this a current diagnosis for this admission?: Yes (3) Hypercholesterolemia Is this a current diagnosis for this admission?: Yes (4) Hypothyroidism Is this a current diagnosis for this admission?: Yes (5) Seizure disorder Is this a current diagnosis for this admission?: Yes (6) DVT prophylaxis Is this a current diagnosis for this admission?: Yes - Transfer Medications Home Medications: Atorvastatin Calcium [Lipitor 10 mg Tablet] 10 mg PO QHS 10/11/16 Buspirone HCl [Buspar 5 mg Tablet] 5 mg PO BID 10/11/16 Carbamazepine [Tegretol 200 mg Tablet] 400 mg PO BID 10/11/16 Docusate Sodium [Colace 100 mg Capsule] 100 mg PO BID 10/11/16 Ferrous Sulfate [Feosol 325 mg Tablet] 325 mg PO BID 10/11/16 Fluoxetine HCl [Prozac] 60 mg PO DAILY 10/11/16 Folic Acid [Folvite 1 mg Tablet] 1 mg PO DAILY 10/11/16 Levothyroxine Sodium [Synthroid] 175 mg PO DAILY 10/11/16 Magnesium Oxide [Mag-Ox 400 mg Tablet] 400 mg PO DAILY 10/11/16 Pantoprazole Sodium [Protonix] 40 mg PO DAILY@0600 10/11/16 Risperidone [Risperdal] 2 mg PO QHS 10/11/16 Transfer Medications: Current Medications Acetaminophen (Tylenol 325 Mg Tablet) 650 mg PO Q4HP PRN PRN Reason: FOR PAIN OR TEMP Stop: 11/10/16 13:35 Aspirin (Ecotrin 325 Mg Ec Tablet) 325 mg PO DAILY KANDICE Stop: 11/11/16 09:59 Last Admin: 10/13/16 09:11 Dose: 325 mg Atorvastatin Calcium (Lipitor 10 Mg Tablet) 10 mg PO QHS KANDICE Stop: 11/10/16 21:59 Last Admin: 10/12/16 22:10 Dose: 10 mg Buspirone HCl (Buspar 10 Mg Tablet) 5 mg PO Q12 KANDICE Stop: 11/10/16 21:59 Last Admin: 10/13/16 09:10 Dose: 5 mg Carbamazepine (Tegretol Xr 200 Mg Tab.Sr) 400 mg PO Q12 KANDICE Stop: 11/10/16 21:59 Last Admin: 10/13/16 09:11 Dose: 400 mg Dextrose (Dextrose Inj 50% Syringe (25 Gm/50 Ml)) 25 gm IV PRN PRN PRN Reason: Protocol Stop: 11/10/16 13:49 Dextrose (Dextrose Inj 50% Syringe (25 Gm/50 Ml)) 12.5 gm IV PRN PRN; Protocol PRN Reason: FOR BG 50-69 IN ALERT PATIENT Stop: 11/10/16 13:49 Enoxaparin Sodium (Lovenox Inj 40 Mg/0.4 Ml Disp.Syrin) 40 mg SUBCUT QAM KANDICE Stop: 11/11/16 07:59 Last Admin: 10/13/16 07:23 Dose: 40 mg Fluoxetine HCl (Prozac 20 Mg Capsule) 60 mg PO DAILY [facility] Stop: 11/11/16 09:59 Last Admin: 10/13/16 09:12 Dose: 60 mg Glucagon (Glucagen Inj 1 Mg Vial) 1 mg IM PRN PRN; Protocol PRN Reason: Evaluate for BG < 70 Stop: 11/10/16 13:49 Glucose (Glutose 40% Gel 15 Gm Tube) 15 gm PO PRN PRN; Protocol PRN Reason: FOR BG 50-69 IN ALERT PATIENT Stop: 11/10/16 13:49 Glucose (Glutose 40% Gel 15 Gm Tube) 30 gm PO PRN PRN; Protocol PRN Reason: FOR BG < 50 IN ALERT PATIENT Stop: 11/10/16 13:49 Insulin Human Lispro (Humalog Insulin 100 Unit/1 Ml 3 Ml Vial) 0 - 12 unit SUBCUT ACHSP PRN PRN Reason: Protocol Stop: 11/10/16 13:49 Levothyroxine Sodium (Synthroid 0.075 Mg Tablet) 0.075 mg PO DAILY [facility] Stop: 11/11/16 09:59 Last Admin: 10/13/16 09:10 Dose: 0.075 mg Metoprolol Succinate (Toprol Xl 25 Mg Tab.Sr) 25 mg PO DAILY [facility] Stop: 11/12/16 09:59 Last Admin: 10/13/16 09:11 Dose: 25 mg Ondansetron HCl (Zofran Odt 4 Mg Tablet) 4 mg PO Q8HP PRN PRN Reason: FOR NAUSEA/VOMITING Stop: 11/10/16 13:35 Ondansetron HCl (Zofran Inj/Pf 4 Mg/2 Ml Sdv) 4 mg IV Q4HP PRN PRN Reason: FOR NAUSEA/VOMITING Stop: 11/10/16 13:35 Risperidone (Risperdal 1 Mg Tablet) 1 mg PO QHS KANDICE Stop: 11/10/16 21:59 Last Admin: 10/12/16 22:10 Dose: 1 mg Sodium Chloride (Saline Flush 2.5 Ml Monoject Prefil Syrin) 2.5 ml IV Q8 KANDICE Stop: 11/10/16 13:59 Last Admin: 10/13/16 13:08 Dose: 2.5 ml - Allergies Allergies/Adverse Reactions: Sulfa (Sulfonamide Antibiotics) Allergy (Verified 10/11/16 11:14) - Diet/Activity Discharge Diet: Cardiac Discharge Activity: Bedrest Hospital Course Hospital Course: 75-year-old female with history of diabetes, hypertension and high cholesterol who presents with right facial droop as well as right arm weakness. The patient reports that she woke up on the and was having trouble using her right arm. She called her primary care doctor and they noted that she had garbled speech and she was instructed to go to the emergency room. When the patient presented to emergency room the patient reported that her speech was improving and that her strength in her right arm had improved from when she first got up. The time my initial exam her strength was 4 out of 5 in the upper extremity but by her description was only 2 out of 6 initially. Since she woke up with symptoms she fell out of the time window for thrombolytic therapy. Patient had a head CT that was unremarkable. MRI did show her to have an acute left-sided CVA. The patient's aspirin was increased from 81 mg to 325 mg. Carotid Doppler showed her to have greater than 70% stenosis on the left and an echocardiogram showed no obvious thrombus. The patient will need a carotid endarterectomy however we do not have vascular surgery services here and the decision was made to transfer the patient to the [facility] for consideration of carotid endarterectomy. The patient's case was discussed with vascular surgery Dr. Hunt. Patient will be admitted to the hospitalist service and Dr. Shane Livingston has graciously accepted the patient in transfer when a bed becomes available. Yesterday when the patient woke up her right arm was much worse and her strength is 2 out of 5 now on that side. She does have a history of seizure disorder but has not had any seizures while here. Physical Exam Vital Signs: Temp Pulse Resp BP Pulse Ox 97.7 F 65 16 145/57 H 100 10/13/16 12:17 10/13/16 14:00 10/13/16 12:17 10/13/16 12:17 10/13/16 12:17 Intake & Output 10/12/16 10/13/16 10/14/16 06:59 06:59 06:59 Intake Total 225 260 120 Output Total 750 Balance 225 -490 120 Weight 63.2 kg 67.5 kg General appearance: PRESENT: no acute distress Eye exam: PRESENT: conjunctiva pink. ABSENT: scleral icterus Mouth exam: PRESENT: moist, tongue midline Neck exam: ABSENT: carotid bruit, JVD, lymphadenopathy, thyromegaly Respiratory exam: PRESENT: clear to auscultation ayesha. ABSENT: rales, rhonchi, wheezes Cardiovascular exam: PRESENT: RRR. ABSENT: diastolic murmur, rubs, systolic murmur GI/Abdominal exam: PRESENT: normal bowel sounds, soft. ABSENT: distended, guarding, mass, organolmegaly, rebound, tenderness Extremities exam: ABSENT: calf tenderness, clubbing, pedal edema Neurological exam: PRESENT: alert, awake, oriented to person, oriented to place , oriented to time, oriented to situation, CN II-XII grossly intact, motor sensory deficit - 2 out of 5 strength the right upper extremity. Also small right facial droop. Psychiatric exam: PRESENT: anxious Skin exam: PRESENT: dry, intact, warm. ABSENT: cyanosis, rash Results Laboratory Results: 10/13/16 04:27 10/13/16 04:27 10/13/16 10/13/16 04:27 04:27 WBC 6.4 RBC 4.46 Hgb 13.6 Hct 39.4 MCV 88 MCH 30.4 MCHC 34.4 RDW 13.8 Plt Count 189 Seg Neutrophils % 73.3 Lymphocytes % 12.7 L Monocytes % 11.2 Eosinophils % 2.1 Basophils % 0.7 Absolute Neutrophils 4.7 Absolute Lymphocytes 0.8 Absolute Monocytes 0.7 Absolute Eosinophils 0.1 Absolute Basophils 0.0 Sodium 140.7 Potassium 4.1 Chloride 103 Carbon Dioxide 26 Anion Gap 12 BUN 21 H Creatinine 0.60 Est GFR ( Amer) > 60 Est GFR (Non-Af Amer) > 60 Glucose 105 Calcium 10.1 Impressions: Chest X-Ray 10/11/16 10:33 IMPRESSION: NO ACUTE RADIOGRAPHIC FINDING IN THE CHEST. Head CT 10/11/16 10:33 IMPRESSION: MILD CHRONIC CHANGES OF ATROPHY AND MICROVASCULAR ISCHEMIA. NO ACUTE PROCESS. Carotid Doppler Study 10/11/16 13:49 IMPRESSION: Findings consistent with a greater than 70% stenosis in the left internal carotid artery. No hemodynamically significant stenoses are identified on the right. There has been interval progression in the degree of stenosis on the left as compared to the previous study. Head MRI 10/11/16 13:49 IMPRESSION: Diffusion-weighted images are positive for tiny cortical infarcts in the left frontal convexity and a small left deep periventricular white matter acute infarct. Plan Discharge Plan: Patient is to be transferred to [facility] for vascular surgery evaluation. The patient is being transferred to the hospitalist service Dr. Shane Livingston Time Spent: Greater than 30 Minutes
[2016-10-13 15:17] VITALS: BP 145/55
--- NOTE | 2016-10-13 16:12 | EKG REPORT ---
SEVERITY:- ABNORMAL ECG - SINUS RHYTHM RBBB AND LAFB LEFT VENTRICULAR HYPERTROPHY : Confirmed by: Alessandra Benz MD 13-Oct-2016 16:11:23
== END 2016-10-13 15:44 | disposition short-term general hospital (02) | DRG 65 ==
LOC: ER 10:32 → EH 13:27 → UNDOADMOB 13:27 → EH 13:36 → 3W 16:40 → OBSVTOIN 17:59
PROVIDERS: ADMIT Internal Medicine; ATTEND Internal Medicine
DX: I63.232 Cerebral infarction due to unspecified occlusion or stenosis of left carotid arteries (principal); G81.91 Hemiplegia, unspecified affecting right dominant side; Z66 Do not resuscitate; E78.00 Pure hypercholesterolemia, unspecified; E03.9 Hypothyroidism, unspecified; G40.909 Epilepsy, unspecified, not intractable, without status epilepticus; E11.9 Type 2 diabetes mellitus without complications; I10 Essential (primary) hypertension; R29.810 Facial weakness; E78.5 Hyperlipidemia, unspecified; K21.9 Gastro-esophageal reflux disease without esophagitis; F31.9 Bipolar disorder, unspecified; Z90.49 Acquired absence of other specified parts of digestive tract; Z90.710 Acquired absence of both cervix and uterus; Z88.2 Allergy status to sulfonamides; Z79.899 Other long term (current) drug therapy; Z60.2 Problems related to living alone; Z82.49 Family history of ischemic heart disease and other diseases of the circulatory system
CPT/HCPCS: 36415; 70450; 70551; 71010; 80048; 80053; 80061; 81001; 82550; 82553; 82962; 83735; 84484; 85025; 85027; 85610; 85730; 93005; 93010; 93306; 93880; 99285; G0378; G8978-GP; G8979-GP; G8987-GO; G8988-GO; J1650; J3490